=== PATIENT | female | born 1940 | race Two or more races ===

== ENCOUNTER 2018-12-09 16:26 | Emergency (ER) | payer OTHER ==
[~2018-12-09] VITALS: Ht 170.2 cm; Wt 59.0 kg
[2018-12-09 17:35] LABS: Basophils # (auto) 0.1 uL; Basophils % (auto) 1.2 % (0.0-2.0); Eosinophils # (auto) 0.1 uL; Hematocrit 43.8 % (36.0-46.0); Hemoglobin 15.1 g/dL (12.2-16.2); Lymphocytes # (auto) 1.3 uL; Lymphocytes % (auto) 23.2 % (10.0-50.0); Mean Corpuscular Hemoglobin 32.3 pg (28.0-32.0); Mean Corpuscular Hgb Conc. 34.6 g/dL (32.0-36.0); Mean Corpuscular Volume 93.5 fL (80.0-100.0); Monocytes # (auto) 0.5 uL; Monocytes % (auto) 9.2 % (0.0-12.0); Neutrophils # (auto) 3.7 uL; Neutrophils % (auto) 65.4 % (37.0-80.0); Nucleated Red Blood Cells % 0.1 %; Platelet Count (auto) 178 10^3/uL (140-450); Red Blood Cells 4.68 10^6/uL (4.0-5.20); Red Cell Distribution Width 13.6 % (11.8-14.3); White Blood Cell 5.7 10^3/uL (4.4-10.8)
[2018-12-09 17:52] LABS: Alanine Aminotransferase 21 U/L (13-56); Albumin 4.3 g/dL (3.4-5.0); Anion Gap 6 (5-15); Aspartate Aminotransferase 26 U/L (15-37); BUN/Creatinine Ratio 12.1; Blood Urea Nitrogen 12 mg/dL (7-18); Carbon Dioxide 29 mmol/L (21-32); Chloride 106 mmol/L (98-107); GFR African American 69 mL/min; GFR Non-African American 57 mL/min; Glucose 94 mg/dL (74-106); Magnesium 2.6 mg/dL (1.6-2.6); Potassium 3.5 mmol/L (3.5-5.1); Sodium 141 mmol/L (136-145)
[2018-12-09 17:57] LABS: Alkaline Phosphatase 124 U/L (45-117); Bilirubin, Total 0.7 mg/dL (0.2-1.0); Total Protein 7.4 g/dL (6.4-8.2)
[2018-12-09] MEDS: LORazepam 2MG/ML-1ML VIAL IV ONE (18:28)
[2018-12-09] MEDS ORDERED: LORazepam 2MG/ML-1ML VIAL IV ONE (19:15)
[2018-12-09 19:29] LABS: Urine Bacteria NONE SEEN /hpf (None Seen); Urine Blood Negative /uL (Negative); Urine Specific Gravity 1.003 (1.001-1.035); Urine WBC <1 /hpf (0 - 5)
[2018-12-09 20:30] VITALS: BP 141/71
== END 2018-12-09 19:45 | disposition home or self-care (01) ==
LOC: EDBD 16:26 → ER 16:26
DX: M79.7 Fibromyalgia (principal); F41.9 Anxiety disorder, unspecified; J44.9 Chronic obstructive pulmonary disease, unspecified; E78.5 Hyperlipidemia, unspecified; I10 Essential (primary) hypertension; I48.91 Unspecified atrial fibrillation; Z90.49 Acquired absence of other specified parts of digestive tract; Z90.710 Acquired absence of both cervix and uterus; Z86.39 Personal history of other endocrine, nutritional and metabolic disease
CPT/HCPCS: 36415; 80053; 81001; 83735; 84484; 85025; 93005; 96374; 99284; J2060